=== PATIENT | female | born 1975 | race Hispanic/Latino ===

== ENCOUNTER 2018-06-14 08:22 | Inpatient (IN) | payer OTHER | END 2018-06-15 12:40 | disposition home or self-care (01) | LOC: DAH 23:40 → WSH 23:40 → DAH 06-15 00:24 → WSH 06-15 00:24 → DAH 08:22 → WSH 08:23 → DAH 08:22 → WSH 16:25 | PROC: 0UT9FZZ Resection of Uterus, Via Natural or Artificial Opening With Percutaneous Endoscopic Assistance (ICD-10-PCS; principal; 2018-06-14 12:40) | DX: N94.6 Dysmenorrhea, unspecified (principal); N92.0 Excessive and frequent menstruation with regular cycle ==